=== PATIENT | female | born 1990 | race Caucasian/White ===

== ENCOUNTER → 2018-06-19 | Outpatient (CLI) | payer MEDICAID | LOC: FIMAGING 12:06 | PROVIDERS: ATTEND Obstetrics & Gynecology | DX: O35.2XX0 Maternal care for (suspected) hereditary disease in fetus, not applicable or unspecified (principal); I34.0 Nonrheumatic mitral (valve) insufficiency; Z82.79 Family history of other congenital malformations, deformations and chromosomal abnormalities; Z3A.23 23 weeks gestation of pregnancy ==

== ENCOUNTER → 2018-08-04 | Outpatient (CLI) | payer OTHER, MEDICAID | LOC: FIMAGING 14:35 | PROVIDERS: ATTEND Obstetrics & Gynecology | DX: O09.293 Supervision of pregnancy with other poor reproductive or obstetric history, third trimester (principal); Z3A.29 29 weeks gestation of pregnancy ==

== ENCOUNTER → 2018-09-01 | Outpatient (CLI) | payer OTHER, MEDICAID | LOC: FIMAGING 14:04 | PROVIDERS: ATTEND Obstetrics & Gynecology | DX: Z34.83 Encounter for supervision of other normal pregnancy, third trimester (principal); Z87.59 Personal history of other complications of pregnancy, childbirth and the puerperium ==